=== PATIENT | female | born 1950 | race African-American/Black ===

== ENCOUNTER 2016-11-29 21:38 | Emergency (ER) | payer OTHER, MEDICAID ==
[~2016-11-29] VITALS: Ht 170.2 cm; Wt 90.0 kg
[2016-11-30] MEDS ORDERED: KETOROLAC 60MG/2ML VIAL IM ONE (03:30)
[2016-11-30] MEDS ORDERED: TETANUS, DIPHTHERIA, PERTUSSIS VAC/PF 0.5ML (>7YR OLD) IM ONE (03:30)
[2016-11-30 04:01] VITALS: BP 145/84
== END 2016-11-30 04:07 | disposition home or self-care (01) ==
LOC: ER 11-30 01:33
DX: S80.812A Abrasion, left lower leg, initial encounter (principal); S81.832A Puncture wound without foreign body, left lower leg, initial encounter; W54.0XXA Bitten by dog, initial encounter; Y93.89 Activity, other specified; Y92.89 Other specified places as the place of occurrence of the external cause; Z88.0 Allergy status to penicillin; Z88.8 Allergy status to other drugs, medicaments and biological substances
CPT/HCPCS: 90471; 90715; 96372; 99284; J1885

== ENCOUNTER 2018-01-31 21:58 | Emergency (ER) | payer OTHER, MEDICAID ==
[~2018-01-31] VITALS: Ht 170.2 cm; Wt 81.0 kg
[2018-02-01] MEDS ORDERED: DIAZEPAM 5 MG TABLET PO ONE (01:00)
[2018-02-01] MEDS ORDERED: ACETAMINOPHEN 325MG TABLET PO ONE (01:00)
[2018-02-01 02:47] VITALS: BP 128/76
== END 2018-02-01 02:50 | disposition home or self-care (01) ==
LOC: ER 21:58
DX: S20.212A Contusion of left front wall of thorax, initial encounter (principal); S20.211A Contusion of right front wall of thorax, initial encounter; S16.1XXA Strain of muscle, fascia and tendon at neck level, initial encounter; M25.561 Pain in right knee; F17.200 Nicotine dependence, unspecified, uncomplicated; E78.00 Pure hypercholesterolemia, unspecified; I10 Essential (primary) hypertension; V89.2XXA Person injured in unspecified motor-vehicle accident, traffic, initial encounter; Y93.89 Activity, other specified; Y92.89 Other specified places as the place of occurrence of the external cause; Y99.9 Unspecified external cause status; Z88.1 Allergy status to other antibiotic agents; Z90.49 Acquired absence of other specified parts of digestive tract; Z98.890 Other specified postprocedural states; Z90.710 Acquired absence of both cervix and uterus
CPT/HCPCS: 71045; 73560; 73610; 73630; 93005; 99284